=== PATIENT | female | born 1950 | race Caucasian/White ===

== ENCOUNTER 2017-05-16 06:22 | Day surgery (SDC) | payer BC, MEDICARE ==
[~2017-05-16 06:22] MED LIST: Lactated Ringers 1,000 ML IV SCH
[2017-05-16] MEDS ORDERED: Albuterol/Ipratropium 3.0-0.5 MG/3 ML Neb Soln NEB PRN (06:55)
[2017-05-16] MEDS ORDERED: Bupivacaine 0.5% 30 ML SDV ONE (07:13)
[2017-05-16] MEDS ORDERED: Octyl 2-Cyanoacrylate 1 Tube ONE (07:13)
[2017-05-16] MEDS ORDERED: Propofol 200 MG/20 ML SDV ONE (07:15)
[2017-05-16] MEDS ORDERED: Lidocaine 2% 5 ML SDV ONE (07:15)
[2017-05-16] MEDS ORDERED: Rocuronium 10 MG/ML 10 ML Syringe ONE (07:15)
[2017-05-16] MEDS ORDERED: Midazolam 1 MG/ML 2 ML SDV ONE (07:15)
[2017-05-16] MEDS ORDERED: Ondansetron 4 MG/2 ML SDV ONE (07:15)
[2017-05-16] MEDS ORDERED: HYDROmorphone 2 MG/ML Syringe ONE (07:15)
[2017-05-16] MEDS ORDERED: fentaNYL 100 MCG/2 ML SDV ONE (07:15)
--- NOTE | 2017-05-16 07:21 | PCM.PREANE ---
Preanesthetic Assessment - Anesthesia/Transfusion/Family Hx Anesthesia History: Prior Anesthesia Without Reaction Family History of Anesthesia Reaction: No Transfusion History: Prior Transfusion Without Reaction (nausea after tubal ligation) - Review of Systems General: No Symptoms Pulmonary: No Symptoms Cardiovascular: No Symptoms Gastrointestinal: No Symptoms Neurological: No Symptoms Other: Reports: None - Physical Assessment NPO Status Date: 05/15/17 Height: 1.65 m Weight: 69.853 kg ASA Class: 2 Mental Status: Alert & Oriented x3 Airway Class: Mallampati = 2 Dentition: Reports: Dentures ROM/Head Extension: Full Lungs: Clear to Auscultation, Normal Respiratory Effort Cardiovascular: Regular Rate, Regular Rhythm - Allergies Allergies/Adverse Reactions: Allergies Allergy/AdvReac Type Severity Reaction Status Date / Time adhesive tape Allergy Blisters Verified 05/12/17 16:12 Sulfa (Sulfonamide Allergy Hives Verified 05/12/17 16:12 Antibiotics) - Anesthesia Plan Pre-Op Medication Ordered: None - Acknowledgements Anesthesia Type Planned: General Anesthesia Pt an Appropriate Candidate for the Planned Anesthesia: Yes Alternatives and Risks of Anesthesia Discussed w Pt/Guardian: Yes Pt/Guardian Understands and Agrees with Anesthesia Plan: Yes Additional Comments: PMH: COPD (WELL CONTROLLED, USES TREADMILL 3 UT/HR WITHOUT SX) PreAnesthesia Questionnaire Other HEENT History: uses reading glasses, has upper denture Respiratory History: Reports: Asthma, COPD Gastrointestinal History: Reports: GERD Musculoskeletal History: Reports: Fracture Other Musculoskeletal History: hx of fx left wrist, right foot and toes Neurological History: Reports: Concussion, Headaches, Chronic, Other (See Below) Other Neuro History: hx of motion sickness, has right sciatic nerve pain Psychiatric History: Reports: Anxiety Hematologic History: Reports: Blood Transfusion(s) Oncologic (Cancer) History: Reports: Breast Dermatologic History: Reports: Eczema, Psoriasis Other Dermatologic History: very dry skin - Past Surgical History HEENT Surgical History: Reports: None Respiratory Surgical History: Reports: None GI Surgical History: Reports: Appendectomy, Colonoscopy Female Surgical History: Reports: Breast Biopsy, Tubal Ligation Neurological Surgical History: Reports: None Musculoskeletal Surgical History: Reports: None Oncologic Surgical History: Reports: Lumpectomy - SUBSTANCE USE Smoking Status *Q: Former Smoker Recreational Drug Use History: No - HOME MEDS Home Medications: Home Meds Albuterol [Ventolin HFA] 1 - 2 puff INH Q4HR PRN 05/12/17 [History] Budesonide/Formoterol Fumarate [Symbicort 160-4.5 Mcg Inhaler] 2 puff INH DAILY 05/12/17 [History] Radhames Carb/MgOx/D3/B12/FA/B6/Bor [Calcium-Folic Acid Plus D] 1 tab PO DAILY [History] Gluc 2KCl/Chondr/Janet Hy/Hy Ac [Glucosamine & Chondroitin Cap] 1 cap PO BID 01/23 [History] MV,Ca,Min/Iron Fum/FA/Vit K [Multi For Her Tablet] 1 tab PO DAILY 05/12/17 [ History] Tiotropium [place] [Spiriva Respimat] 2 puff INH DAILY 05/12/17 [History] - CURRENT (IN HOUSE) MEDS Current Meds: Current Medications Albuterol/Ipratropium (Duoneb 3.0-0.5 Mg/3 Ml) 3 ml NEB Q2H PRN PRN Reason: Shortness of Breath Stop: 05/18/17 06:56 Lactated Ringer's (Ringers, Lactated) 1,000 mls @ 125 mls/hr IV ASDIRECTED MUNIRA Last Admin: 05/16/17 06:55 Dose: 125 mls/hr Cefazolin Sodium/Dextrose 1 gm (/ Premix) 50 mls @ 100 mls/hr IV ONETIME ONE Stop: 05/16/17 11:31 Discontinued Medications Bupivacaine HCl (Marcaine 0.5%) Confirm Administered Dose 30 ml .ROUTE .STK-MED ONE Stop: 05/16/17 07:14 Octyl Cyanoacrylate (Dermabond Advance) Confirm Administered Dose 1 applic .ROUTE .STK-MED ONE Stop: 05/16/17 07:14
[2017-05-16] MEDS ORDERED: Acetaminophen/oxyCODONE 325-7.5 MG Tab PO ONE (07:55)
[2017-05-16] MEDS ORDERED: fentaNYL 100 MCG/2 ML SDV IVPUSH PRN (08:13)
[2017-05-16] MEDS ORDERED: Neostigmine Methylsulfate 1 MG/ML 5 ML Syringe ONE (09:06)
--- NOTE | 2017-05-16 09:23 | PCM.OPNOTE ---
- General Post-Op/Procedure Note Date of Surgery/Procedure: 05/16/17 Findings: gb wall is not thickened; but yellow and green cw chronic cholecystitis; see dictation [id number] Pre Op Diagnosis: chronic and acute cholecystitis Post-Op Diagnosis: Same Anesthesia Technique: General ET Tube Primary Surgeon: Moo Silverio Pathology: sent Complications: None Condition: Good Free Text/Narrative:: Intake & Output 05/15/17 05/16/17 05/16/17 22:59 06:59 14:59 Output Total 100 Balance -100
--- NOTE | 2017-05-16 09:57 | PCM.POSTAN ---
POST ANESTHESIA ASSESSMENT - MENTAL STATUS Mental Status: Alert, Oriented - RESPIRATORY Respiratory Status: Respiratory Rate WNL, Airway Patent, O2 Saturation Stable - CARDIOVASCULAR CV Status: Pulse Rate WNL, Blood Pressure Stable - GASTROINTESTINAL GI Status: No Symptoms - PAIN Pain Score: 2 - POST OP HYDRATION Hydration Status: Adequate & Stable
--- NOTE | 2017-05-16 10:17 | OR ---
SURGEON: Moo Silverio MD DATE OF PROCEDURE: 05/16/2017 PREOPERATIVE DIAGNOSIS: Chronic acute cholecystitis. POSTOPERATIVE DIAGNOSIS: Chronic acute cholecystitis. PROCEDURE PERFORMED: Laparoscopic cholecystectomy. COMPLICATIONS: None. FINDINGS: Gallbladder wall was not thickened, but very yellow and green consistent with chronic cholecystitis. PROCEDURE NOTE: The patient was taken to the operating room and placed in the supine position. After the intubation of general endotracheal anesthesia, the patient's abdomen was prepped and draped in the usual sterile fashion. Using Optiview, a 12 mm trocar was placed supraumbilically and then followed with pneumoperitoneum. A 5 mm trocar was placed in the epigastrium and two 5 mm trocars placed in the right upper quadrant. The placement of the last three trocars was done under direct video supervision. Upon gaining entrance to the abdominal cavity, an extensive examination was then performed. The gallbladder was located and identified and retracted to the dome of the liver at the triangle of Calot. The cystic duct was clipped three more times and then using the endoscopic clip, was transected with placement of the endoscopic clip and transection was performed with care, ensuring the posterior prong of the instruments were clearly visualized prior to exercising the procedure. The gallbladder was dissected using electrocautery out of the liver bed and then removed using endoscopic bag through the umbilical site. The gallbladder was removed en bloc and there was no bile spillage and this was then followed with extensive irrigation until the bile was clear from blood and bile. The trocars were then removed under direct video supervision. The 12 mm umbilical site was then closed with deep stitches using 0 Vicryl followed with proximal stitches using 3-0 Vicryl and Dermabond. The other three trocar sites were closed with 3-0 Vicryl followed with approximation of skin with Dermabond. The patient was then awakened and extubated and transferred to the recovery room in hemodynamically stable condition. At the conclusion of the surgery, before closing the abdominal wound, instrument count and sponge count were done and were correct. The patient tolerated the procedure well and there were no intraoperative complications. Dr. Silverio was present through the whole procedure. Just before surgery, a timeout was called. The patient was identified and procedure identified and procedure started. As always, thank you for the kind referral dictated by. ELSI / APARNA /[id number]
[2017-05-16] MEDS ORDERED: ceFAZolin 1 GM in Premix Bag 1 BAG IV ONE (11:02)
[2017-05-16] MEDS ORDERED: Haloperidol Lactate 5 MG/ML SDV IM ONE (11:08)
[2017-05-16] MEDS ORDERED: Ketorolac 30 MG/ML SDV IVPUSH ONE (11:21)
[2017-05-16] MEDS ORDERED: Ketorolac 30 MG/ML SDV ONE (11:33)
--- NOTE | 2017-05-16 12:34 | PCM48HPAN ---
Post Anesthesia Note - EVALUATION WITHIN 48HRS OF ANESTHETIC Vital Signs in Normal Range: Yes Patient Participated in Evaluation: Yes Respiratory Function Stable: Yes Airway Patent: Yes Cardiovascular Function Stable: Yes Hydration Status Stable: Yes Pain Control Satisfactory: Yes Nausea and Vomiting Control Satisfactory: Yes Mental Status Recovered: Yes
[2017-05-16 13:04] VITALS: BP 145/67
== END 2017-05-16 12:26 | disposition home or self-care (01) ==
LOC: MW.SDS 06:22
PROVIDERS: ATTEND Surgery
PROC: 0FT44ZZ Resection of Gallbladder, Percutaneous Endoscopic Approach (ICD-10-PCS; principal; 2017-05-16)
DX: K81.1 Chronic cholecystitis (principal); J44.9 Chronic obstructive pulmonary disease, unspecified; Z85.3 Personal history of malignant neoplasm of breast; Z87.891 Personal history of nicotine dependence; Z88.2 Allergy status to sulfonamides; Z91.048 Other nonmedicinal substance allergy status; Z79.899 Other long term (current) drug therapy; Z79.51 Long term (current) use of inhaled steroids; Z98.51 Tubal ligation status; Z90.49 Acquired absence of other specified parts of digestive tract; Z98.890 Other specified postprocedural states
CPT/HCPCS: 47562; A9270; J0690; J1170; J1630; J1885; J2250; J2405; J3010; J7120; 00790; 88304; J2704